=== PATIENT | male | born 1945 | race Caucasian/White ===

== ENCOUNTER 2022-11-28 09:18 | Inpatient (IN) ==
[2022-11-28 09:44] LABS: Hematocrit 30.5 % (38-53); Hemoglobin 10.3 g/dL (13.2-16.3); Mean Corpuscular Hemoglobin 31.4 pg (27-33); Mean Corpuscular Hgb Conc 33.7 g/dL (31-36); Mean Corpuscular Volume 93.1 fL (80-97); Mean Platelet Volume 6.4 fL (7.5-11.2); Platelet Count 445 10^3/uL (150-450); Red Blood Count 3.28 10^6/uL (4.06-5.63); Red Cell Distribution Width 14.7 % (12-17); White Blood Count 24.6 10^3/uL (3.6-10.2)
[2022-11-28] MEDS ORDERED: cefTRIAXone 2 GM ADDV.VIAL 2 GM in NS 0.9% 100 ml BAG 100 ML IV ONE (09:56)
[2022-11-28] MEDS ORDERED: Azithromycin 500 mg/250 ml NS 500 MG/250 ML BAG IVPB ONE (09:56)
[2022-11-28 10:00] LABS: ALT 21 U/L (7-52); Albumin 2.5 g/dL (3.2-5.2); Albumin/Globulin Ratio 0.8 (1-3); Alkaline Phosphatase 110 U/L (35-149); Blood Urea Nitrogen 22 mg/dL (6-24); CO2 Carbon Dioxide 29 mmol/L (22-32); Calcium 8.9 mg/dL (8.6-10.3); Chloride 98 mmol/L (101-111); Creatinine, Serum 0.52 mg/dL (0.67-1.17); Globulin 3.3 g/dL (2-4); Glucose 106 mg/dL (70-100); Sodium 132 mmol/L (135-145); Total Protein 5.8 g/dL (6.4-8.9); eGFR CKD-EPI 103.2 (>60)
[2022-11-28 10:07] LABS: High Sens Troponin Baseline 13 pg/mL (<20)
[2022-11-28 10:34] LABS: Anion Gap 5 mmol/L (2-16)
[2022-11-28 10:43] LABS: ABS Basophils 0.1 10^3/uL (0.0-0.1); ABS Monocytes 1.7 10^3/uL (0.0-1.1); ABS Neutrophils 21.8 10^3/uL (1.5-7.6); Eosinophil % 0.1 %
[2022-11-28] MEDS ORDERED: cefTRIAXone 2 gm/50 mL D5W 2 GM/50 ML BAG IV SCH (10:45)
[2022-11-28] MEDS ORDERED: Iohexol 350 (CONTRAST) 500 ML MDV IV ONE (11:11)
[2022-11-28] MEDS ORDERED: Lactated Ringers 1000 ml BAG 1,000 ML IV ONE ×2 (11:32→11:48)
[2022-11-28] MEDS ORDERED: Carbidopa/Levodop 25/100 MG TAB PO SCH (14:00)
[2022-11-28] MEDS: Enoxaparin 40 MG/0.4 ML SYR SUBCUT SCH (16:11)
[2022-11-28] MEDS: CMCS: Entacapone 200 mg TAB (NF) PO SCH ×2 (18:20→20:59)
[2022-11-28] MEDS: Carbidopa/Levodop 25/100 MG TAB PO SCH ×4 (18:20→22:21)
[2022-11-28] MEDS: Carbidopa/Levodop CR 50/200 TAB.CR PO SCH (20:59)
[2022-11-29] MEDS ORDERED: Magnesium Sulfate 2 gm BAG 2 GM/50 ML BAG IVPB ONE (01:28)
[2022-11-29 06:01] LABS: ABS Monocytes 1.3 10^3/uL (0.0-1.1); ABS Neutrophils 18.7 10^3/uL (1.5-7.6); Hematocrit 31.2 % (38-53); Hemoglobin 10.4 g/dL (13.2-16.3); Lymphocyte % 4.6 %; Mean Corpuscular Hemoglobin 31.5 pg (27-33); Mean Corpuscular Hgb Conc 33.3 g/dL (31-36); Mean Corpuscular Volume 94.6 fL (80-97); Mean Platelet Volume 6.6 fL (7.5-11.2); Platelet Count 457 10^3/uL (150-450); Red Cell Distribution Width 15.1 % (12-17)
[2022-11-29 06:12] LABS: Calcium 9.1 mg/dL (8.6-10.3); Creatinine, Serum 0.58 mg/dL (0.67-1.17); Magnesium 2.2 mg/dL (1.9-2.7); Potassium 4.1 mmol/L (3.5-5.0); eGFR CKD-EPI 99.8 (>60)
[2022-11-29] MEDS: CMCS: Rasagiline 1 mg TAB (NF) PO SCH (08:12)
[2022-11-29] MEDS: CMCS: Entacapone 200 mg TAB (NF) PO SCH ×3 (08:12→20:48)
[2022-11-29] MEDS: Carbidopa/Levodop 25/100 MG TAB PO SCH ×3 (08:12→20:49)
[2022-11-29] MEDS ORDERED: Azithromycin 500 mg/250 ml NS 500 MG/250 ML BAG IVPB SCH (10:00)
[2022-11-29] MEDS ORDERED: cefTRIAXone 1 gm/50 mL D5W 1 GM/50 ML BAG IV SCH (11:00)
[2022-11-29] MEDS ORDERED: cefTRIAXone 2 gm/50 mL D5W 2 GM/50 ML BAG IV SCH (11:00)
[2022-11-29] MEDS: Enoxaparin 40 MG/0.4 ML SYR SUBCUT SCH (13:44)
[2022-11-29] MEDS ORDERED: NS 0.9% 500 ml BAG 500 ML IV ONE (15:16)
[2022-11-29] MEDS ORDERED: Piperacillin/Tazobac ADVAN 3.375 GM in NS 0.9% 100 ml BAG 100 ML IV ONE (17:32)
[2022-11-29] MEDS ORDERED: Zosyn per Pharmacy NOTE FOLLOW UP SCH (18:00)
[2022-11-29] MEDS ORDERED: Vancomycin per Pharmacy 1 EA NOTE FOLLOW UP SCH (18:00)
[2022-11-29] MEDS ORDERED: Vancomycin 1,500 MG in NS 0.9% 250 ml 250 ML IVPB ONE (18:00)
[2022-11-29 18:25] LABS: Body Fluid WBC 94973 /mcL
[2022-11-29 18:52] LABS: Body Fluid Mono 3 %; Body Fluid Total Cells Counted 200
[2022-11-29 18:56] LABS: Body Fluid Appearance Cloudy; Body Fluid Color Yellow; Body Fluid Source Pleural Fluid
[2022-11-29] MEDS: Carbidopa/Levodop CR 50/200 TAB.CR PO SCH (20:50)
[2022-11-30 05:53] LABS: ABS Monocytes 1.2 10^3/uL (0.0-1.1); ABS Neutrophils 16.7 10^3/uL (1.5-7.6); Hematocrit 28.2 % (38-53); Hemoglobin 9.6 g/dL (13.2-16.3); Lymphocyte % 5.4 %; Mean Corpuscular Hgb Conc 34.2 g/dL (31-36); Mean Corpuscular Volume 93.4 fL (80-97); Mean Platelet Volume 6.4 fL (7.5-11.2); Platelet Count 422 10^3/uL (150-450); Red Blood Count 3.01 10^6/uL (4.06-5.63); Red Cell Distribution Width 15.1 % (12-17); White Blood Count 18.9 10^3/uL (3.6-10.2)
[2022-11-30] MEDS ORDERED: Vancomycin 1000 MG in NS 0.9% 250 ML IVPB SCH (06:00)
[2022-11-30 06:09] LABS: Calcium 8.8 mg/dL (8.6-10.3); Creatinine, Serum 0.54 mg/dL (0.67-1.17); Magnesium 1.9 mg/dL (1.9-2.7)
[2022-11-30] MEDS ORDERED: Lactated Ringers 1000 ml BAG 1,000 ML IV ONE (07:44)
[2022-11-30] MEDS: ZOSYN 3.375 GM Q8H per EXTENDED INFUSION IV SCH ×4 (08:13→23:13)
[2022-11-30] MEDS: Carbidopa/Levodop 25/100 MG TAB PO SCH ×3 (08:14→21:28)
[2022-11-30] MEDS: CMCS: Rasagiline 1 mg TAB (NF) PO SCH (08:14)
[2022-11-30] MEDS: CMCS: Entacapone 200 mg TAB (NF) PO SCH ×3 (08:14→21:28)
[2022-11-30 09:02] LABS: INR 1.45 (0.88-1.18)
[2022-11-30] MEDS ORDERED: fentaNYL 100 mcg/2 ml 50 MCG/ML VIAL ONE (12:36)
[2022-11-30] MEDS ORDERED: Alteplase (CATHFLO) 10 MG in NS 0.9% 50 ML 40 ML INTRAPLEUR SCH (16:30)
[2022-11-30] MEDS ORDERED: DORNASE ALFA 1 mg/ml(NF) 5 MG in NS 0.9% 50 ML 45 ML INTRAPLEUR SCH (16:30)
[2022-11-30] MEDS: Enoxaparin 40 MG/0.4 ML SYR SUBCUT SCH (17:56)
[2022-11-30] MEDS: Carbidopa/Levodop CR 50/200 TAB.CR PO SCH (21:27)
[2022-12-01] MEDS: Alteplase (CATHFLO) 10 MG in NS 0.9% 50 ML 40 ML INTRAPLEUR SCH ×2 (05:15→17:01)
[2022-12-01] MEDS: DORNASE ALFA 1 mg/ml(NF) 5 MG in NS 0.9% 50 ML 45 ML INTRAPLEUR SCH ×2 (05:18→17:01)
[2022-12-01] MEDS ORDERED: Vancomycin Trough Check NOTE FOLLOW UP ONE (05:30)
[2022-12-01 06:11] LABS: ABS Lymphocytes 0.9 10^3/uL (1.0-4.8); ABS Monocytes 0.9 10^3/uL (0.0-1.1); ABS Neutrophils 11.2 10^3/uL (1.5-7.6); Eosinophil % 0.1 %; Hematocrit 28.7 % (38-53); Hemoglobin 9.6 g/dL (13.2-16.3); Lymphocyte % 6.7 %; Mean Corpuscular Hemoglobin 31.1 pg (27-33); Mean Corpuscular Hgb Conc 33.6 g/dL (31-36); Mean Corpuscular Volume 92.7 fL (80-97); Mean Platelet Volume 6.7 fL (7.5-11.2); Platelet Count 418 10^3/uL (150-450); Red Blood Count 3.09 10^6/uL (4.06-5.63)
[2022-12-01] MEDS: ZOSYN 3.375 GM Q8H per EXTENDED INFUSION IV SCH ×3 (08:47→23:05)
[2022-12-01] MEDS: CMCS: Rasagiline 1 mg TAB (NF) PO SCH (11:07)
[2022-12-01] MEDS: CMCS: Entacapone 200 mg TAB (NF) PO SCH ×3 (11:09→21:27)
[2022-12-01] MEDS: Carbidopa/Levodop 25/100 MG TAB PO SCH ×3 (11:09→21:27)
[2022-12-01] MEDS ORDERED: Nicotine GUM 4MG FRUIT FLAVOR PO PRN (15:51)
[2022-12-01] MEDS: Enoxaparin 40 MG/0.4 ML SYR SUBCUT SCH (16:13)
[2022-12-01] MEDS: Carbidopa/Levodop CR 50/200 TAB.CR PO SCH (21:27)
[2022-12-01] MEDS ORDERED: LORazepam 2 mg VIAL 1 ml IV PUSH ONE (22:59)
[2022-12-01] MEDS ORDERED: Lorazepam PYXIS KEY PRN (22:59)
[2022-12-02] MEDS: DORNASE ALFA 1 mg/ml(NF) 5 MG in NS 0.9% 50 ML 45 ML INTRAPLEUR SCH ×2 (05:14→18:12)
[2022-12-02] MEDS: Alteplase (CATHFLO) 10 MG in NS 0.9% 50 ML 40 ML INTRAPLEUR SCH ×2 (05:14→18:12)
[2022-12-02 06:29] LABS: Hematocrit 34.5 % (38-53); Hemoglobin 11.3 g/dL (13.2-16.3); Mean Corpuscular Hemoglobin 30.3 pg (27-33); Mean Corpuscular Hgb Conc 32.8 g/dL (31-36); Mean Corpuscular Volume 92.6 fL (80-97); Mean Platelet Volume 6.6 fL (7.5-11.2); Platelet Count 473 10^3/uL (150-450); Red Blood Count 3.73 10^6/uL (4.06-5.63); Red Cell Distribution Width 15.1 % (12-17); White Blood Count 23.6 10^3/uL (3.6-10.2)
[2022-12-02 06:53] LABS: Albumin 2.4 g/dL (3.2-5.2); Albumin/Globulin Ratio 0.8 (1-3); Calcium 8.6 mg/dL (8.6-10.3); Creatinine, Serum 0.62 mg/dL (0.67-1.17); Magnesium 1.8 mg/dL (1.9-2.7); Potassium 4.1 mmol/L (3.5-5.0); Total Bilirubin 0.6 mg/dL (0.2-1.0); Total Protein 5.4 g/dL (6.4-8.9); eGFR CKD-EPI 97.8 (>60)
[2022-12-02 07:03] LABS: ABS Monocytes 0.6 10^3/uL (0.0-1.1); ABS Neutrophils 21.9 10^3/uL (1.5-7.6); Lymphocyte % 4.4 %
[2022-12-02] MEDS ORDERED: Acetylcysteine INHALATION SOL 200 MG/ML NEB.SOLN 10 ML INH PRN (09:09)
[2022-12-02] MEDS: ZOSYN 3.375 GM Q8H per EXTENDED INFUSION IV SCH ×3 (09:40→23:43)
[2022-12-02] MEDS: Carbidopa/Levodop 25/100 MG TAB PO SCH ×3 (09:41→21:24)
[2022-12-02] MEDS: CMCS: Entacapone 200 mg TAB (NF) PO SCH ×4 (09:41→21:29)
[2022-12-02] MEDS: CMCS: Rasagiline 1 mg TAB (NF) PO SCH (09:42)
[2022-12-02] MEDS ORDERED: Albuterol 2.5mg/3 ml (0.083%) NEB.SOLN INH ONE (13:42)
[2022-12-02] MEDS: Enoxaparin 40 MG/0.4 ML SYR SUBCUT SCH (18:13)
[2022-12-02] MEDS: Carbidopa/Levodop CR 50/200 TAB.CR PO SCH (21:23)
[2022-12-03] MEDS ORDERED: NS 0.9% 500 ml BAG 500 ML IV ONE (05:29)
[2022-12-03 07:18] LABS: ABS Basophils 0.2 10^3/uL (0.0-0.1); ABS Lymphocytes 1.1 10^3/uL (1.0-4.8); ABS Monocytes 0.8 10^3/uL (0.0-1.1); ABS Neutrophils 20.6 10^3/uL (1.5-7.6); Hematocrit 30.6 % (38-53); Hemoglobin 10.2 g/dL (13.2-16.3); Lymphocyte % 4.9 %; Mean Corpuscular Hemoglobin 31.3 pg (27-33); Mean Corpuscular Hgb Conc 33.5 g/dL (31-36); Mean Corpuscular Volume 93.5 fL (80-97); Mean Platelet Volume 6.2 fL (7.5-11.2); Platelet Count 409 10^3/uL (150-450); Red Blood Count 3.27 10^6/uL (4.06-5.63); Red Cell Distribution Width 15.4 % (12-17); White Blood Count 22.8 10^3/uL (3.6-10.2)
[2022-12-03 07:47] LABS: Albumin 2.1 g/dL (3.2-5.2); Albumin/Globulin Ratio 0.7 (1-3); Calcium 8.7 mg/dL (8.6-10.3); Creatinine, Serum 0.65 mg/dL (0.67-1.17); Globulin 3.1 g/dL (2-4); Potassium 4.6 mmol/L (3.5-5.0); Total Bilirubin 0.4 mg/dL (0.2-1.0); Total Protein 5.2 g/dL (6.4-8.9); eGFR CKD-EPI 96.4 (>60)
[2022-12-03] MEDS: ZOSYN 3.375 GM Q8H per EXTENDED INFUSION IV SCH ×2 (08:01→15:32)
[2022-12-03] MEDS: Carbidopa/Levodop 25/100 MG TAB PO SCH ×3 (09:44→20:01)
[2022-12-03] MEDS: CMCS: Rasagiline 1 mg TAB (NF) PO SCH (09:44)
[2022-12-03] MEDS: CMCS: Entacapone 200 mg TAB (NF) PO SCH ×3 (09:44→20:03)
[2022-12-03] MEDS ORDERED: Lactated Ringers 1000 ml BAG 1,000 ML IV ONE (13:10)
[2022-12-03] MEDS: Enoxaparin 40 MG/0.4 ML SYR SUBCUT SCH (17:27)
[2022-12-03] MEDS: Carbidopa/Levodop CR 50/200 TAB.CR PO SCH (20:01)
[2022-12-04] MEDS: ZOSYN 3.375 GM Q8H per EXTENDED INFUSION IV SCH ×4 (00:03→23:08)
[2022-12-04 05:41] LABS: ABS Lymphocytes 0.8 10^3/uL (1.0-4.8); ABS Monocytes 0.5 10^3/uL (0.0-1.1); ABS Neutrophils 12.6 10^3/uL (1.5-7.6); ABS Nucleated RBC 0.01 10^3/ul; Eosinophil % 0.1 %; Hematocrit 25.2 % (38-53); Hemoglobin 8.5 g/dL (13.2-16.3); Lymphocyte % 6.1 %; Mean Corpuscular Hemoglobin 31.5 pg (27-33); Mean Corpuscular Hgb Conc 33.9 g/dL (31-36); Mean Corpuscular Volume 92.9 fL (80-97); Mean Platelet Volume 6.4 fL (7.5-11.2); Nucleated Red Blood Cells % 0.1 /100 WBC (0.0-0.4); Platelet Count 381 10^3/uL (150-450); Red Blood Count 2.71 10^6/uL (4.06-5.63); Red Cell Distribution Width 14.8 % (12-17)
[2022-12-04 06:21] LABS: Calcium 8.7 mg/dL (8.6-10.3); Creatinine, Serum 0.51 mg/dL (0.67-1.17); Potassium 4.1 mmol/L (3.5-5.0); eGFR CKD-EPI 103.8 (>60)
[2022-12-04] MEDS: CMCS: Entacapone 200 mg TAB (NF) PO SCH ×3 (08:10→21:45)
[2022-12-04] MEDS: CMCS: Rasagiline 1 mg TAB (NF) PO SCH (08:10)
[2022-12-04] MEDS: Carbidopa/Levodop 25/100 MG TAB PO SCH ×3 (08:11→21:44)
[2022-12-04] MEDS: Enoxaparin 40 MG/0.4 ML SYR SUBCUT SCH (16:13)
[2022-12-04] MEDS: Carbidopa/Levodop CR 50/200 TAB.CR PO SCH (21:43)
[2022-12-05 06:25] LABS: ABS Lymphocytes 0.9 10^3/uL (1.0-4.8); ABS Monocytes 0.5 10^3/uL (0.0-1.1); ABS Neutrophils 9.1 10^3/uL (1.5-7.6); Eosinophil % 0.1 %; Hematocrit 29.7 % (38-53); Hemoglobin 10.1 g/dL (13.2-16.3); Lymphocyte % 8.8 %; Mean Corpuscular Hemoglobin 32.1 pg (27-33); Mean Corpuscular Hgb Conc 33.9 g/dL (31-36); Mean Corpuscular Volume 94.6 fL (80-97); Mean Platelet Volume 6.5 fL (7.5-11.2); Platelet Count 479 10^3/uL (150-450); Red Blood Count 3.14 10^6/uL (4.06-5.63); Red Cell Distribution Width 14.9 % (12-17); White Blood Count 10.5 10^3/uL (3.6-10.2)
[2022-12-05 06:32] LABS: Albumin 2.4 g/dL (3.2-5.2); Albumin/Globulin Ratio 0.7 (1-3); Calcium 8.9 mg/dL (8.6-10.3); Creatinine, Serum 0.54 mg/dL (0.67-1.17); Globulin 3.3 g/dL (2-4); Potassium 3.8 mmol/L (3.5-5.0); Total Bilirubin 0.4 mg/dL (0.2-1.0); Total Protein 5.7 g/dL (6.4-8.9)
[2022-12-05] MEDS ORDERED: KCL 20 MEQ/100 ML IVPREMIX 20 MEQ/100 ML BAG IV ONE (06:58)
[2022-12-05] MEDS: ZOSYN 3.375 GM Q8H per EXTENDED INFUSION IV SCH ×3 (07:58→23:27)
[2022-12-05] MEDS: CMCS: Entacapone 200 mg TAB (NF) PO SCH ×3 (08:04→21:30)
[2022-12-05] MEDS: CMCS: Rasagiline 1 mg TAB (NF) PO SCH (08:04)
[2022-12-05] MEDS: Carbidopa/Levodop 25/100 MG TAB PO SCH ×3 (08:05→21:29)
[2022-12-05] MEDS: Enoxaparin 40 MG/0.4 ML SYR SUBCUT SCH (18:31)
[2022-12-05] MEDS: Carbidopa/Levodop CR 50/200 TAB.CR PO SCH (21:30)
[2022-12-06] MEDS: ZOSYN 3.375 GM Q8H per EXTENDED INFUSION IV SCH ×3 (08:35→23:10)
[2022-12-06] MEDS: Carbidopa/Levodop 25/100 MG TAB PO SCH ×3 (08:36→21:21)
[2022-12-06] MEDS: CMCS: Entacapone 200 mg TAB (NF) PO SCH ×3 (08:37→21:21)
[2022-12-06] MEDS: CMCS: Rasagiline 1 mg TAB (NF) PO SCH (08:38)
[2022-12-06 12:00] LABS: ABS Lymphocytes 0.6 10^3/uL (1.0-4.8); ABS Monocytes 0.6 10^3/uL (0.0-1.1); ABS Neutrophils 9.7 10^3/uL (1.5-7.6); ABS Nucleated RBC 0.01 10^3/ul; Eosinophil % 0.1 %; Hematocrit 28.9 % (38-53); Hemoglobin 9.8 g/dL (13.2-16.3); Lymphocyte % 5.3 %; Mean Corpuscular Hemoglobin 31.8 pg (27-33); Mean Corpuscular Hgb Conc 33.9 g/dL (31-36); Mean Corpuscular Volume 93.8 fL (80-97); Platelet Count 448 10^3/uL (150-450); Red Blood Count 3.09 10^6/uL (4.06-5.63); Red Cell Distribution Width 14.9 % (12-17); White Blood Count 10.9 10^3/uL (3.6-10.2)
[2022-12-06 13:18] LABS: Albumin 2.3 g/dL (3.2-5.2); Calcium 8.7 mg/dL (8.6-10.3); Potassium 4.2 mmol/L (3.5-5.0); Total Bilirubin 0.4 mg/dL (0.2-1.0)
[2022-12-06 13:24] LABS: Albumin/Globulin Ratio 0.7 (1-3); Creatinine, Serum 0.54 mg/dL (0.67-1.17); Globulin 3.2 g/dL (2-4); Total Protein 5.5 g/dL (6.4-8.9)
[2022-12-06] MEDS ORDERED: Carbidopa/Levodop 25/100 MG TAB PO ONE (15:09)
[2022-12-06] MEDS: Enoxaparin 40 MG/0.4 ML SYR SUBCUT SCH (17:40)
[2022-12-06] MEDS ORDERED: hydrOXYzine IM 50 MG/ML VIAL IM PRN (17:59)
[2022-12-06] MEDS: Carbidopa/Levodop CR 50/200 TAB.CR PO SCH (21:21)
[2022-12-07] MEDS: ZOSYN 3.375 GM Q8H per EXTENDED INFUSION IV SCH (07:43)
[2022-12-07] MEDS: CMCS: Rasagiline 1 mg TAB (NF) PO SCH (10:07)
[2022-12-07] MEDS: Carbidopa/Levodop 25/100 MG TAB PO SCH ×3 (10:07→20:23)
[2022-12-07] MEDS: CMCS: Entacapone 200 mg TAB (NF) PO SCH ×3 (10:08→21:28)
[2022-12-07] MEDS ORDERED: cefTRIAXone 1 gm/50 mL D5W 1 GM/50 ML BAG IV SCH (18:00)
[2022-12-07] MEDS: Enoxaparin 40 MG/0.4 ML SYR SUBCUT SCH (18:12)
[2022-12-07] MEDS: Carbidopa/Levodop CR 50/200 TAB.CR PO SCH (20:24)
[2022-12-07] MEDS: Amoxicillin/Clavul 500/125 TAB (Augmentin 500 mg tab) PO SCH (20:24)
[2022-12-08 06:59] LABS: Hematocrit 29.2 % (38-53); Mean Corpuscular Hgb Conc 34.3 g/dL (31-36); Mean Corpuscular Volume 93.4 fL (80-97); Mean Platelet Volume 5.8 fL (7.5-11.2); Platelet Count 430 10^3/uL (150-450); Red Blood Count 3.12 10^6/uL (4.06-5.63); Red Cell Distribution Width 14.9 % (12-17); White Blood Count 9.7 10^3/uL (3.6-10.2)
[2022-12-08 07:28] LABS: Albumin 2.5 g/dL (3.2-5.2); Albumin/Globulin Ratio 0.8 (1-3); Calcium 8.9 mg/dL (8.6-10.3); Creatinine, Serum 0.5 mg/dL (0.67-1.17); Globulin 3.2 g/dL (2-4); Potassium 4.2 mmol/L (3.5-5.0); Total Bilirubin 0.3 mg/dL (0.2-1.0); Total Protein 5.7 g/dL (6.4-8.9); eGFR CKD-EPI 104.4 (>60)
[2022-12-08] MEDS: CMCS: Rasagiline 1 mg TAB (NF) PO SCH (09:14)
[2022-12-08] MEDS: Carbidopa/Levodop 25/100 MG TAB PO SCH ×3 (09:15→20:14)
[2022-12-08] MEDS: CMCS: Entacapone 200 mg TAB (NF) PO SCH ×3 (09:16→20:13)
[2022-12-08] MEDS: Amoxicillin/Clavul 500/125 TAB (Augmentin 500 mg tab) PO SCH ×2 (09:16→20:12)
[2022-12-08] MEDS: Enoxaparin 40 MG/0.4 ML SYR SUBCUT SCH (17:33)
[2022-12-08] MEDS: Carbidopa/Levodop CR 50/200 TAB.CR PO SCH (20:14)
[2022-12-09] MEDS: Carbidopa/Levodop 25/100 MG TAB PO SCH ×3 (08:39→21:15)
[2022-12-09] MEDS: CMCS: Rasagiline 1 mg TAB (NF) PO SCH (08:40)
[2022-12-09] MEDS: Amoxicillin/Clavul 500/125 TAB (Augmentin 500 mg tab) PO SCH ×2 (08:41→21:16)
[2022-12-09] MEDS: CMCS: Entacapone 200 mg TAB (NF) PO SCH ×3 (08:41→21:15)
[2022-12-09] MEDS: Enoxaparin 40 MG/0.4 ML SYR SUBCUT SCH (17:55)
[2022-12-09] MEDS: Carbidopa/Levodop CR 50/200 TAB.CR PO SCH (21:16)
[2022-12-10] MEDS: Carbidopa/Levodop 25/100 MG TAB PO SCH ×3 (08:16→20:56)
[2022-12-10] MEDS: CMCS: Rasagiline 1 mg TAB (NF) PO SCH (08:16)
[2022-12-10] MEDS: CMCS: Entacapone 200 mg TAB (NF) PO SCH ×3 (08:17→21:02)
[2022-12-10] MEDS: Amoxicillin/Clavul 500/125 TAB (Augmentin 500 mg tab) PO SCH ×2 (08:17→20:59)
[2022-12-10] MEDS: Enoxaparin 40 MG/0.4 ML SYR SUBCUT SCH (16:52)
[2022-12-10] MEDS: Carbidopa/Levodop CR 50/200 TAB.CR PO SCH (21:03)
[2022-12-11 06:11] LABS: Calcium 9.9 mg/dL (8.6-10.3); Creatinine, Serum 0.61 mg/dL (0.67-1.17); Phosphorus 2.7 mg/dL (2.5-5.0); Potassium 3.7 mmol/L (3.5-5.0); eGFR CKD-EPI 98.3 (>60)
[2022-12-11] MEDS ORDERED: Magnesium Hydroxide LIQ 30 ML UDC PO PRN (08:28)
[2022-12-11] MEDS ORDERED: Senna TAB 8.6 mg TAB PO PRN (08:28)
[2022-12-11] MEDS ORDERED: Polyethylene Glycol 3350 17 GM PACKET PO PRN (08:28)
[2022-12-11] MEDS: Amoxicillin/Clavul 500/125 TAB (Augmentin 500 mg tab) PO SCH ×2 (10:01→21:36)
[2022-12-11] MEDS: CMCS: Entacapone 200 mg TAB (NF) PO SCH ×3 (10:01→21:32)
[2022-12-11] MEDS: Magnesium Hydroxide LIQ 30 ML UDC PO SCH ×2 (10:02→21:40)
[2022-12-11] MEDS: Carbidopa/Levodop 25/100 MG TAB PO SCH ×3 (10:02→21:29)
[2022-12-11] MEDS: CMCS: Rasagiline 1 mg TAB (NF) PO SCH (10:02)
[2022-12-11] MEDS: Enoxaparin 40 MG/0.4 ML SYR SUBCUT SCH (17:35)
[2022-12-11] MEDS: Carbidopa/Levodop CR 50/200 TAB.CR PO SCH (21:39)
[2022-12-12] MEDS: Magnesium Hydroxide LIQ 30 ML UDC PO SCH (09:35)
[2022-12-12] MEDS: CMCS: Rasagiline 1 mg TAB (NF) PO SCH (09:35)
[2022-12-12] MEDS: Carbidopa/Levodop 25/100 MG TAB PO SCH (09:36)
[2022-12-12] MEDS: CMCS: Entacapone 200 mg TAB (NF) PO SCH (09:36)
[2022-12-12] MEDS: Amoxicillin/Clavul 500/125 TAB (Augmentin 500 mg tab) PO SCH (09:36)
[2022-12-12 09:59] VITALS: BP 110/64
[2022-12-12 10:14] LABS: Rapid COVID-19 Molecular Undetected (Undetected)
== END 2022-12-12 13:20 | DRG 189 ==
LOC: EDHOLD 09:18 → ED 09:18 → SUATTDRO 11:34 → EDHOLD 16:03 → MED 17:30
PROVIDERS: ADMIT Internal Medicine; ATTEND Internal Medicine